=== PATIENT | male | born 1940 | race Caucasian/White ===

== ENCOUNTER 2017-11-03 01:46 | Inpatient (IN) | payer OTHER, BC ==
[~2017-11-03] VITALS: Ht 185.4 cm; Wt 95.0 kg
[~2017-11-03 01:46] MED LIST: CO Q-10400 MG PO; COUMADIN5 MG PO; DIOVAN HCT 31 TABLE1 PO; LIPITOR10 MG PO; LOVENOX100 MG/1 M SC; MAGNESIUM250 MG PO; MULTI-DAY VITA1 EACH PO; NORVASC5 MG PO; OMEPRAZOLE20 MG PO; VITAMIN B12-FO1 EACH PO
[2017-11-03 02:51] LABS: BASOPHIL (%) 0.5 % (0-1); BASOPHIL COUNT 0.1 K/uL (0-0.1); EOSINOPHIL (%) 0 % (0-5); HEMATOCRIT 41.8 % (38.0-50.0); IMMATURE GRANULOCYTE (%) 0.3 % (0.0-0.7); LYMPHOCYTE (%) 19.2 % (15-42); LYMPHOCYTE COUNT 2.4 K/uL (1.0-2.8); MCH 33.7 PG (29.0-34.0); MCHC 35.9 G/DL (30.0-36.0); MCV 93.9 FL (86-99); MONOCYTE (%) 8.5 % (3-12); MONOCYTE COUNT 1.1 K/uL (0-0.8); NEUTROPHIL (%) 71.5 % (45-76); PLATELET COUNT 201 K/uL (156-360); RBC DIS.WIDTH-CV 13.2 % (11.8-14.6); RBC DIS.WIDTH-SD 45.6 % (39-53); RED BLOOD COUNT 4.45 M/uL (4.00-5.50); WHITE BLOOD COUNT 12.5 K/uL (4.1-10.2)
[2017-11-03 03:04] LABS: CHLORIDE 104 mEq/L (99-109); POTASSIUM 3.2 mEq/L (3.7-5.4); SODIUM 141 mEq/L (136-147)
[2017-11-03 03:07] LABS: GLUCOSE 147 mg/dL (70-99); TOTAL PROTEIN 7.3 g/dL (6.4-8.3)
[2017-11-03 03:08] LABS: TOTAL BILIRUBIN 0.6 mg/dL (0.0-1.0)
[2017-11-03 03:10] LABS: ALKALINE PHOSPHATASE 78 IU/L (3-129); CREATININE 1.5 mg/dL (0.6-1.3); GFR ESTIMATE (CALCULATED) 48 mL/min/ (58.99-99999)
[2017-11-03 03:11] LABS: UREA NITROGEN (BUN) 23 mg/dL (9-23)
[2017-11-03 03:12] LABS: AST (GOT) 25 IU/L (2-34); DIRECT BILIRUBIN 0.3 mg/dL (0.0-0.3)
[2017-11-03 03:13] LABS: ALT (GPT) 21 IU/L (3-49)
[2017-11-03 03:43] LABS: APPEARANCE CLEAR ((CLEAR)); BILIRUBIN NEGATIVE; BLOOD MODERATE; COLOR YELLOW ((YELLOW)); GLUCOSE (STRIP) NEGATIVE; KETONES 80; LEUKOCYTES NEGATIVE; NITRITE NEGATIVE; PROTEIN (STRIP) 100; SPECIFIC GRAVITY 1.019 (1.000-1.030); UROBILINOGEN 0.2 MG/DL (0.2-1.0)
[2017-11-03 03:45] LABS: BACTERIA RARE /HPF; EPITHELIAL CELLS NONE SEEN /HPF; HYALINE CASTS 0-5 /LPF; MUCUS TRACE /LPF; RED BLOOD CELLS TNTC /HPF (0-5); UCUL ADDED? YES; WHITE BLOOD CELLS 0-5 /HPF (0-5)
[2017-11-03 08:04] VITALS: BP 135/64
[2017-11-03] MEDS ORDERED: AMLODIPINE BES2.5 MG PO (09:55)
[2017-11-03 11:18] VITALS: BP 130/69
[2017-11-03] MEDS ORDERED: TAMSULOSIN HCL0.4 MG PO (13:32)
[2017-11-03] MEDS ORDERED: PERCOCET 5/31 TABLET PO (13:32)
== END 2017-11-03 15:03 | disposition home or self-care (01) | DRG 694 ==
LOC: EME → EDBD 01:46 → EME 01:46 → EDOF 05:48 → ENRESERV 05:53 → 3EAST 07:08
PROVIDERS: Emergency Medicine
DX: N13.2 Hydronephrosis with renal and ureteral calculous obstruction (principal); N17.9 Acute kidney failure, unspecified; E87.6 Hypokalemia; I10 Essential (primary) hypertension; E78.00 Pure hypercholesterolemia, unspecified; E78.5 Hyperlipidemia, unspecified; I25.10 Atherosclerotic heart disease of native coronary artery without angina pectoris; K21.9 Gastro-esophageal reflux disease without esophagitis; Z79.01 Long term (current) use of anticoagulants; Z86.718 Personal history of other venous thrombosis and embolism; Z87.891 Personal history of nicotine dependence; Z90.81 Acquired absence of spleen; Z23 Encounter for immunization
CPT/HCPCS: 74176; 80048; 80076; 81003; 85025; 87086; 90686; 99281; 99285; J1644; J1885; J1956; J2405; J3010; J7030; J7040